=== PATIENT | male | born 1940 | race Caucasian/White ===

== ENCOUNTER 2021-09-19 07:02 | Observation (INO) ==
--- NOTE | 2021-09-17 10:39 | Anesthesiology Consultation ---
Date of Service September 17, 2021 Assessment & Plan (1) Encounter for pre-operative examination: Chart Review Chart Review: Acceptable Risk for Surgery (pending preop Covid testing results ) and Patient NOT seen in Pre Admission Testing Per nursing assessment 09/16/21, patient denies any recent travel. Wears mask in public. No known Covid positive contacts or Covid related symptoms. No known Covid infection in the past 90 days. Pt is vaccinated for Covid. Preop Covid testing scheduled 09/16/21= will await results History Surgery Operation Date: 09/19/21 07:30 Proposed Procedures p Transurethral Resection Prostate - Lenard Delgadillo, DO Height/Weight Height: 5 ft 7.5 in Weight: 79.379 kg Allergies Allergy/AdvReac Type Severity Reaction Status Date / Time No Known Allergies Allergy Verified 08/23/21 10:16 Medications Home Medications Medication Instructions Recorded Confirmed Last Taken clonazepam 1 mg tablet 1 mg PO HS PRN tab 08/23/21 09/16/21 Unknown lisinopril 20 1 tab PO HS 08/23/21 09/16/21 Unknown mg-hydrochlorothiazide 25 mg tablet finasteride 5 mg tablet 5 mg PO DAILY #30 tab 09/13/21 09/16/21 Unknown baclofen 10 mg tablet 10 mg PO DAILY PRN 09/16/21 09/16/21 Unknown losartan 50 mg tablet 50 mg PO HS 09/16/21 09/16/21 Unknown tamsulosin 0.4 mg capsule (Flomax) 0.4 mg PO QPM 09/16/21 09/16/21 Unknown Past Medical History Medical History BPH (benign prostatic hyperplasia) History of hypertension History of lipoma x2 Hx of melanoma of skin Hyperlipidemia Osteoarthritis Past Family History Family History Other No history of adverse effect of anesthesia Past Surgical History Surgical History History of cataract surgery bilateral History of colonoscopy History of esophagogastroduodenoscopy (EGD) History of extraction of renal calculus left History of melanoma excision History of vasectomy Social History Smoking Status: Never smoker Do You Dip or Chew Tobacco: No Hx Alcohol Use: No Hx Substance Use: No Testing Laboratory Results 09/16/21= WBC: 5.6 H/H: 13.6/41.3 PLATELETS: 208 SODIUM: 140 POTASSIUM: 4.1 CHLORIDE: 104 CO2: 32 BUN: 12 CREATININE: 0.9 GLUCOSE: 89 UA: hazy in color, trace leukocyte esterase, positive nitrite, 5-10 urine WBC Electrocardiogram Date: 09/16/21 SR with marked sinus arrhythmia at 76bpm. Nonspecific T wave abnormality. Chest X-Ray Date: 09/16/21 Nonspecific hyperventilatory changes in the lungs without focal abnormality No focal consolidations, effusions or pneumothoraces.
[~2021-09-19 07:02] MED LIST: LR 15ML/HR IV SCH; ceFAZolin 2000MG 2,000 MG/15 ML SYR IV SCH
--- NOTE | 2021-09-19 07:22 | History & Physical Bridge Note ---
Date of Service September 19, 2021 History & Physical Bridge Note I have examined the patient, reviewed the History & Physical and in the interval since the performance of the History & Physical I have noted the following changes of clinical significance: no changes noted
[2021-09-19] MEDS ORDERED: ePHEDrine sulfate 50 MG/ML AMP IV PRN (08:40)
[2021-09-19] MEDS ORDERED: HYDROmorphone INJ 1 MG/ML SYRINGE IV PRN (08:40)
[2021-09-19] MEDS ORDERED: MEPERIDINE HCL 25 MG/ML CARP/VIAL IV PRN (08:40)
[2021-09-19] MEDS ORDERED: ATROPINE SULFATE 0.1 MG/ML 10ML SYR IV PRN (08:40)
[2021-09-19] MEDS ORDERED: LABETALOL HCL IV 5 MG/ML 20ML IV PRN (08:40)
[2021-09-19] MEDS ORDERED: ONDANSETRON INJ 2 MG/ML 2 ML VIAL IV PRN ×2 (08:40→17:20)
[2021-09-19] MEDS ORDERED: fentaNYL citrate 100 MCG/2 ML VIAL IV PRN (08:40)
[2021-09-19] MEDS ORDERED: PHENYLEPHRINE 100MCG/ML 5ML SYR IV PRN (08:40)
[2021-09-19] MEDS ORDERED: fentaNYL citrate 100 MCG/2 ML VIAL ONE ×2 (08:54→10:34)
[2021-09-19] MEDS ORDERED: LIDOCAINE 2% 2 ML VIAL/AMP(20MG/ML) INFIL ONE (09:05)
[2021-09-19] MEDS ORDERED: ONDANSETRON INJ 2 MG/ML 2 ML VIAL ONE (09:05)
[2021-09-19] MEDS ORDERED: PROPOFOL IV EMULSION 10 MG/ML 20 ML VIAL IV ONE (09:05)
[2021-09-19] MEDS ORDERED: GENTAMICIN SULFATE 40 MG/ML 2 ML VIAL ONE (09:14)
[2021-09-19] MEDS ORDERED: PHENYLEPHRINE HCL 10 MG/ML VIAL ONE (10:28)
[2021-09-19] MEDS ORDERED: ePHEDrine sulfate 50 MG/ML SYR ONE (10:29)
[2021-09-19] MEDS ORDERED: BELLADONNA/OPIUM SUPP 60 MG SUPP PR ONE ×2 (10:58→11:11)
--- NOTE | 2021-09-19 11:40 | Operative Report ---
[facility] Post Operative Report Pre & Post Diagnosis Operation Date: 09/19/21 08:40 Pre-Op Diagnosis: Retention Post-Op Diagnosis: Retention I identified the patient and participated in the time-out.: Yes Procedure Operation Date: 09/19/21 08:40 Actual Procedures p Transurethral Resection of the Prostate(Not Applicable) - Lenard Delgadillo DO Surgeon Lenard Delgadillo, II, DO Workers Compensation Claims Analyst None Estimated Blood Loss 20 Findings Consistent with Post-Op Diagnosis Extremely Large Prostate with massive median lobe projecting into the bladder with severe obstruction and numerous significant prostatic varicosity. Specimens Prostate adenoma. Drains 24Fr 3-way Catheter Anesthesia Type General Complications none Disposition Disposition: Recovery Room Indications Patient with obstruction due to prostate enlargement. Risks and benefits discussed at length. Description of Procedure Patient was consented and brought back to the operating room. Patient was placed under anesthesia in the supine position and moved to the dorsal lithotomy position. Patient was prepped and draped in the regular sterile fashion. A time out was completed. A 30degree Cystoscope was placed into the bladder and the entire bladder was examined. The UO's were identified as well as the bladder neck, trigone, dome, and the other important landmarks. The prostatic urethra and large lobes/adenoma was assessed and the veru and bladder neck identified and area/size was assessed. Patient's prostate was found to be severely enlarged with massive projection into the bladder causing considerable obstruction. Majority of projected prostate was a from the median lobe however patient also had severe enlargement of the lateral lobes. Throughout the prostate very large and easily bleeding prostatic varicosities and considerable edema was noted. The entire base was covered with varicosities heading to the prostate. The resection scope was placed and the fine bipolar loop was selected. Starting at the 5 and 7 o'clock positions, a channel was created from bladder neck to the veru. The prostatic median lobe was enucleated in sections and placed into the bladder. After considerable resection a channel was able to be formed. Considerable edema and irritation was noted on the base of the bladder. Multiple large varicosities were fulgurated. A large amount of resection was required in order to create the channel. And a considerable amount of specimen was created. The Specimen was removed and sent for analysis. Attention was then taken to the large sections of adenoma that have been enucleated. The transurethral bipolar loop was used to resect these into smaller pieces this was then irrigated out. Care was taken to monitor the bladder wall throughout the process. Both UOs were able to be identified at the base of the bladder. A considerable amount of lateral lobe enlargement was still visible however at this point due to the significant time taken to resect the median lobe also the considerable improvement of access into the bladder it was decided to focus on controlling all of the multiple areas of prostatic varicosity bleeding. The resection bed and any bleeding areas were fulgurated/cauterized and the entire area inspected. All bleeding was controlled. The bladder was inspected a final time. Additional tissue was irrigated out. The bladder was emptied and irrigated. All specimen and debris was removed. The scope was removed with the bladder partially full. A catheter was placed and balloon elevated. A 22 Iranian coud catheter was placed at first. With attempted irrigation a moderate amount of clot was appreciated. Due to this the 22 Iranian catheter was removed and a [address] Iranian [address] catheter was placed. This was easily irrigated. CBI was attached to the import and a B&O suppository was placed rectally. The patient was cleaned, aroused from anesthesia, and transferred to the pacu in stable condition having tolerated the procedure well with no complications. I was present and participated in all aspects of the procedure. The patient will be monitored in the PACU until transferred. We will plan to monitor in the PACU and assess. We will continue CBI for now. Patient's 22 Iranian catheters balloon was filled to 50 cc. We will monitor for improvement of bleeding. Also will monitor patient's improvement after the procedure. May need to consider observation for patient if any issues or concerns. We will plan to maintain catheter for 10 to 14 days I attest to the content of the Intraoperative Record and any orders documented therein. Any exceptions are noted below.
--- NOTE | 2021-09-19 12:50 | Anesthesiology Progress Note ---
Date of Service September 19, 2021 Anesthesia Post Procedure Vital Signs Vital Signs: Temp Pulse Pulse Resp BP BP Pulse Ox 09/19/21 12:30 76 19 128/83 94 09/19/21 12:20 74 14 132/82 94 09/19/21 12:10 78 14 134/90 94 09/19/21 12:00 74 13 126/82 99 09/19/21 11:50 74 15 118/82 98 09/19/21 11:42 36.1 C L 84 16 137/87 100 09/19/21 07:45 36.8 C 90 20 173/98 H 98 Transfer of Care Handoff Completed per policy Notes Mental Status: alert / awake / arousable Patient Amnestic to Procedure: Yes Nausea / Vomiting: adequately controlled Pain: adequately controlled Airway Patency, RR, SpO2: stable & adequate BP & HR: stable & adequate Hydration State: stable & adequate Anesthetic Complications: no major complications apparent and Pt Satisfied with anesthetic care Notes: The patient is awake and comfortable. The urology team will evaluate his Case for any clotting.
[2021-09-19] MEDS ORDERED: ACETAMINOPHEN 325 MG TAB PO PRN (17:20)
[2021-09-19] MEDS ORDERED: MoRPHine SULFATE 4 MG/ML 1 ML CARP\\VIAL IV PRN (17:20)
[2021-09-19] MEDS ORDERED: oxyCODONE HCL IR 5 MG TAB (IMMEDIATE RELEASE) PO PRN ×2 (17:20)
[2021-09-19] MEDS ORDERED: BACLOFEN 10 MG TAB PO PRN (17:20)
[2021-09-19] MEDS ORDERED: clonazePAM 1 MG TAB PO PRN (17:20)
[2021-09-19] MEDS ORDERED: MoRPHine SULFATE 2 MG/ML CARP IV PRN (17:20)
[2021-09-19] MEDS: LACTATED RINGER'S 1,000 ML IV SCH (17:35)
[2021-09-19] MEDS: ceFAZolin 2000MG 2,000 MG/15 ML SYR IV SCH ×2 (17:49→23:52)
[2021-09-19] MEDS ORDERED: COUGH DROP (SUGAR FREE) LOZ 24 LOZ/1 BOX BUCCAL PRN (18:55)
[2021-09-19] MEDS ORDERED: COUGH DROP (SUGAR FREE) LOZ 24 LOZ/1 BOX BUCCAL ONE (18:57)
[2021-09-19] MEDS ORDERED: TAMSULOSIN HCL 0.4 MG CAP PO SCH (21:00)
[2021-09-19] MEDS ORDERED: LOSARTAN POTASSIUM 50 MG TAB PO SCH (21:00)
[2021-09-20] MEDS: LACTATED RINGER'S 1,000 ML IV SCH ×2 (03:21→13:14)
[2021-09-20 06:41] LABS: Basophils # (auto) 0.02 K/uL (0-0.2); Basophils % (auto) 0.3 %; Eosinophils # (auto) 0.07 K/uL (0-0.5); Eosinophils % (auto) 1.1 %; Hematocrit (blood only) 32.7 % (42-52); Hemoglobin 10.6 g/dL (14.0-18.0); Immature Granulocytes # (auto) 0.01 K/uL (0.00-0.02); Immature Granulocytes % (auto) 0.2 %; Lymphocytes # (auto) 1.35 K/uL (1.2-3.4); Lymphocytes % (auto) 21.5 %; Mean Corpuscular Hemoglobin 30.7 pg (25-34); Mean Corpuscular Hgb Conc 32.4 g/dL (32-36); Mean Corpuscular Volume 94.8 fL (80-100); Mean Platelet Volume 10.1 fL (7.4-10.4); Monocytes # (auto) 0.56 K/uL (0.11-0.59); Monocytes % (auto) 8.9 %; Neutrophils # (auto) 4.28 K/uL (1.4-6.5); Platelet Count 151 K/uL (130-400); RDW Coefficient of Variation 13.9 % (11.5-14.5); RDW Standard Deviation 48.2 fL (36.4-46.3); Red Blood Count 3.45 M/uL (4.7-6.1); White Blood Count 6.29 K/uL (4.8-10.8)
[2021-09-20 07:06] LABS: BUN Creatinine Ratio 9.9 (10-20); Calcium 8.2 mg/dl (8.5-10.1); Creatinine Clr Calc Pharmacy 55.1 ml/min; Est GFR (African American) 70.5 ml/min; Est GFR (Non-African American) 60.8 ml/min; Potassium 3.4 mmol/L (3.5-5.1)
--- NOTE | 2021-09-20 07:32 | Urology Progress Note ---
Date of Service September 20, 2021 Assessment & Plan (1) BPH (benign prostatic hyperplasia): (2) Urinary retention: Plan: 81yo M admitted s/p TURP procedure - POD #1 s/p TURP with Dr. Delgadillo - Doing well, progressing as expected. - Afebrile, VSS. - Labs reviewed, Wbc and creatinine stable. Hgb 10.6. - Tolerating PO diet - 3 way Case catheter intact, patent and draining clear urine with CBI running - CBI clamped @ 0745, nursing aware - will reassess later this AM - Maintain Case catheter - Encourage ambulation - Anticipate home with Case catheter later today presuming urine appropriate and he continues to progress as expected - Pt reassessed this afternoon. - Feeling well, no pain. - CBI was restarted this morning on slow by nursing for hematuria. - Will clamp again and monitor - Plan to reassess for possible discharge later today. Admission and Anticipated Discharge Date Admission Date: September 19, 2021 Subjective Pt examined at bedside this AM. Awake, resting in bed on arrival. No acute distress. Denies any pain or discomfort at present. No fevers or chills. Tolerating diet, no nausea or vomiting. Case catheter intact with CBI running moderately, draining clear urine Review of Systems Constitutional: as per Subjective / HPI Gastrointestinal: as per Subjective / HPI Genitourinary: + as per Subjective / HPI Physical Exam Constitutional: well developed and well nourished; no acute distress and not ill appearing Respiratory: normal respiratory effort and able to speak in complete sentences; no labored breathing and no audible wheezes Gastrointestinal (Abdomen): Inspection/Auscultation: abdomen normal to inspection; abdomen not distended Percussion/Palpation: abdomen soft; abdomen nontender and no guarding Musculoskeletal: Head/Neck/Chest: normocephalic Skin: No visible rashes or lesions to exposed skin areas Neurologic: moves all extremities and awake Psychiatric: Orientation: alert, oriented x 3 and cooperative Genitourinary: Case catheter intact with CBI running Results & Data ([facility]) Vital Signs (Past 12 Hours) Vital Signs Temp Pulse Resp BP Pulse Ox 09/20/21 07:19 37 C 77 16 101/61 95 09/19/21 23:34 37.1 C 90 18 129/76 95 PG Care Time/CCT Total # of Minutes Spent Total Time Spent with Patient: Total time spent is greater than 50% in coordination of care (as documented) at patient's floor/unit and/or counseling patient: Coding Level of Care Code None Diagnoses BPH (benign prostatic hyperplasia) N40.0 Urinary retention R33.9
[2021-09-20] MEDS ORDERED: FINASTERIDE 5 MG TAB PO SCH (09:00)
--- NOTE | 2021-09-26 07:20 | Discharge Summary ---
Date of Service September 26, 2021 Admission HPI Per Admitting Provider See H&P Admission Exam Per Admitting Provider See H&P Principal Diagnosis BPH with obstruction Discharge Exam General: Alert in no acute distress. HEENT: Normocephalic Atraumatic. Inspection normal. Psychologic: Normal affect. Skin: [place] and Dry. No rashes or visible lesions. Abdomen: Soft Non-distended. No rebound or guarding. Discharge Data Allergies Allergy/AdvReac Type Severity Reaction Status Date / Time No Known Allergies Allergy Verified 09/19/21 07:37 Procedures Performed Operation Date: 09/19/21 08:40 Actual Procedures p Transurethral Resection of the Prostate(Not Applicable) - Lenard Delgadillo, Hospital Course (1) BPH (benign prostatic hyperplasia): (2) Urinary retention: 81yo M admitted s/p TURP procedure - POD #1 s/p TURP with Dr. Delgadillo - Doing well, progressing as expected. - Afebrile, VSS. - Labs reviewed, Wbc and creatinine stable. Hgb 10.6. - Tolerating PO diet - 3 way Case catheter intact, patent and draining clear urine with CBI running - CBI clamped @ 0745, nursing aware - will reassess later this AM - Maintain Case catheter - Encourage ambulation - Anticipate home with Case catheter later today presuming urine appropriate and he continues to progress as expected - Pt reassessed this afternoon. - Feeling well, no pain. - CBI was restarted this morning on slow by nursing for hematuria. - Will clamp again and monitor - Plan to reassess for possible discharge later today. Total Time Total Time Spent Total Time Spent (In Minutes): 10 minutes Total Time Includes: Examination of the Patient, Discharge Planning, Medication Reconciliation and Communication With Other Providers Discharge Plan Discharge Items Patient Disposition: Home - Self-Care Reason For Visit: Retention Discharge Diagnosis: Same Activity: Per Instructions section Lifting: No more than 25 pounds Bathing Comment: Ok to shower. No tub baths or soaks. Sexual Activity: Wait until after follow-up appointment Exercise/Sports: Wait until after follow-up appointment Driving/Machine Use: Do not drive while taking prescription pain medication. Non-emergency contact: Surgeon and Urologist Call non-emergency contact if: you have any medication questions, your symptoms worsen, your pain is not controlled, your pain is worsening, your pain is unusual for you, your pain is concerning for you, you have a fever and your temperature is above 101.5 Follow-up/Referrals: Lenard Delgadillo DO [Physician] - Anoop Guerra [Primary Care Provider] - 09/27/21 8:00 am [facility],Nurse [FAKE FOR SCHEDULES] - Diet: Regular Addtl Attending Provider Instructions: Please take all medications as prescribed and keep all follow-ups as scheduled. The urology office will call you with your follow-up appointments. Continue your Levofloxacin (antibiotic) as previously prescribed. Please call our office at [phone] with any questions, concerns or need to reschedule appointments for any reason. We are happy to assist you. Tips for your recovery at home: Dont be alarmed by brownish or reddish blood or clots in your urine. This is a result of the procedure. This may occur off and on for weeks to months after the procedure but should continue to improve. Drink plenty of fluids during the day (enough to keep your urine very light co lored). This will help keep a healthy flow of urine. Do not lift >25 lbs until your followup Avoid constipation. Please use a stool softener (Colace) for the first two weeks after your procedure Be sure to finish the antibiotics as prescribed. If you go home with a catheter, please wash tubing where it enters your body twice daily with mild soap (Dove or Dial). Once your catheter is removed, expect some blood in your urine and some burning when you urinate. You should have an appointment to have this removed, if you do not please call our office to arrange. When to call [facility] [place] Urology at [phone]: Your urine contains heavy blood clots You are constantly leaking urine Fever of 101F or higher, chills, nausea, or vomiting Your pain is not relieved with medication Pending Studies at Discharge: No Stand-Alone Forms: [facility]it Medications and DC Order Prescriptions: New phenazopyridine [Pyridium] 200 mg tablet 200 mg PO Q8H PRN (Reason: pain) Qty: 10 RF: 0 oxycodone-acetaminophen [Percocet] 7.5-325 mg tablet 1 tab PO Q8H PRN (Reason: pain) Qty: 7 RF: 0 oxybutynin chloride 5 mg tablet 5 mg PO Q8H PRN (Reason: bladder spasms) Qty: 20 RF: 0 Continued levofloxacin 500 mg tablet 500 mg PO DAILY Qty: 10 RF: 0 clonazepam 1 mg tablet 1 mg PO HS PRN (Reason: Sleep) RF: 0 finasteride 5 mg tablet 5 mg PO DAILY Qty: 30 RF: 11 losartan 50 mg Tablet 100 mg PO HS RF: 0 baclofen 10 mg Tablet 10 mg PO DAILY PRN (Reason: Spasms) RF: 0 tamsulosin [Flomax] 0.4 mg capsule 0.4 mg PO QPM RF: 0 Discharge Orders: Discharge Order (Routine); Ordered 09/20/21 Ordered By: Lissa Adams/Other Patient Handouts: Discharge Instructions Caring for ... Admission Data Admit Date/Time: 09/19/21 13:35 Attending Provider: Lenard Delgadillo Admit Provider: Lenard Delgadillo Primary Care Provider: Anoop Guerra Other Interventions: Discharge Summary Assessment (RN) Last Done: 09/20/21 14:34 Coding Level of Care Code D/C DAY MANAGEMENT <30 MINS Diagnoses BPH (benign prostatic hyperplasia) N40.0 Urinary retention R33.9
== END 2021-09-20 16:44 | disposition home or self-care (01) ==
LOC: PACUINP 07:02 → ASU 07:02 → 3E 17:09